=== PATIENT | female | born 1975 | race Caucasian/White ===

== ENCOUNTER 2021-05-22 11:02 | Emergency (ER) | payer BC ==
[~2021-05-22 11:02] MED LIST: FELDENE10 MG PO; FLEXERIL 10 MG10 MG PO; IBUPROFEN600 MG PO; NORCO 5-325 TA1 EACH PO; OMNICEF 300 MG300 MG PO; PREDNISONE 50 M50 MG PO; Voltaren Gel 1 % TOP; ZOFRAN ODT4 MG PO; ZOFRAN4 MG PO
[2021-05-22 12:02] LABS: HEMOGLOBIN 12.7 gm/dl (12.3-15.3); RED BLOOD COUNT 4.05 M/UL (4.00-5.10); WHITE BLOOD COUNT 8.4 K/UL (4.5-11.0)
[2021-05-22 12:48] LABS: BUN/CREATININE RATIO 10 (0-10)
[2021-05-22] MEDS ORDERED: CYCLOBENZAPRINE10 MG PO (13:46)
== END 2021-05-22 14:05 | disposition home or self-care (01) ==
LOC: ER1 11:02
PROVIDERS: Nurse Practitioner
DX: M54.6 Pain in thoracic spine (principal); G89.29 Other chronic pain; Z88.2 Allergy status to sulfonamides; Z88.5 Allergy status to narcotic agent
CPT/HCPCS: 72125; 72128; 80053; 81001; 85025; 96374; 99284; J1885

== ENCOUNTER 2021-10-01 13:28 | Emergency (ER) | payer BC ==
[~2021-10-01 13:28] MED LIST changes: +CYCLOBENZAPRINE10 MG PO
[2021-10-01 14:57] LABS: HEMOGLOBIN 13.2 gm/dl (12.3-15.3); RED BLOOD COUNT 4.19 M/UL (4.00-5.10); WHITE BLOOD COUNT 6.1 K/UL (4.5-11.0)
[2021-10-01 15:28] LABS: BUN/CREATININE RATIO 18 (0-10)
[2021-10-01] MEDS ORDERED: CEFUROXIME500 MG PO (17:01)
== END 2021-10-01 17:07 | disposition home or self-care (01) ==
LOC: ER1 13:28
PROVIDERS: Preventive Medicine Occupational Medicine
DX: N39.0 Urinary tract infection, site not specified (principal); I10 Essential (primary) hypertension
CPT/HCPCS: 80053; 81001; 83690; 85025; 86140; 96361; 96374; 96375; 96376; 99284; J0696; J1170